=== PATIENT | female | born 1970 | race Caucasian/White ===

== ENCOUNTER 2018-03-13 12:53 | Observation (INO) ==
[2018-03-13] MEDS ORDERED: Ipratropium/Albuterol Neb 3 ML IH ONE ×2 (13:24→19:45)
--- NOTE | 2018-03-13 13:47 | Emergency Department Note ---
Disposition Clinical Impression: Leg swelling Pneumonia Qualifiers: Pneumonia type: due to unspecified organism Laterality: bilateral Lung location : unspecified part of lung Qualified Code(s): J18.9 - Pneumonia, unspecified organism Disposition: Admitted As Inpatient Condition: Fair General Adult HPI - General Chief complaint: ED Shortness of Breath/Dyspnea Stated complaint: MANDI Time Seen by Provider: 03/13/18 13:16 Source: patient, EMS Mode of arrival: ambulatory Limitations: no limitations Nursing Notes Reviewed: Yes Vital Signs Reviewed: Yes - History of Present Illness HPI Narrative: Patient presents to the emergency department for difficulty in breathing. Patient states that she has been diagnosed with pneumonia and has undergone admission approximately 4 weeks ago for pneumonia. She has multiple allergies and says that it is difficult to treat her pneumonia. During her stay in the hospital she did undergo a cholecystectomy. Patient has been recovering from this and has had issues with constipation since her surgery. The patient states that she has also recently had swelling in her legs that has been worse over the last week and has become more painful. Patient states she presents here to [place] because she has recently moved to the area. Her most recent admission and surgery were performed in [place]. Patient's previous results will be obtained. Blood work as well as CT imaging be performed to rule out intra-abdominal process as well as possible PE with recent surgery. Pain Scale: 3 - Related Data Home Medications Medication Instructions Recorded Confirmed Aspirin Enteric Coated [Aspirin EC] 81 mg PO DAILY 03/13/18 03/13/18 Atorvastatin Calcium [Lipitor] 20 mg PO HS 03/13/18 03/13/18 Divalproex (12 HR) [Depakote (12 500 mg PO BID 03/13/18 03/13/18 HR)] Metoprolol [Lopressor] 25 mg PO BID 03/13/18 03/13/18 Nortriptyline HCl 50 mg PO HS 03/13/18 03/13/18 Ondansetron HCl [Zofran] 4 mg PO TID PRN 03/13/18 03/13/18 Allergies Allergy/AdvReac Type Severity Reaction Status Date / Time cephalexin [From Keflex] Allergy See Verified 03/13/18 19:31 Comments levofloxacin [From Levaquin] Allergy Swelling Verified 03/13/18 14:14 of Lip/Tongue/Throat Penicillins [PCN] Allergy See Verified 03/13/18 19:31 Comments Sulfa (Sulfonamide Allergy Swelling Verified 03/13/18 14:13 Antibiotics) of Lip/Tongue/Throat Review of Systems: CONSTITUTIONAL: Weakness and fatigue HEENT: Eyes: No visual changes. Ears, Nose, Throat: No hearing loss, difficulty talking or unable to swallow. SKIN: No rash or itching. CARDIOVASCULAR: No chest pain, chest pressure or chest discomfort. No palpitations or edema. RESPIRATORY: Shortness of breath and went cough without sputum production. GASTROINTESTINAL: Abdominal pain with constipaiton. GENITOURINARY: decreased urination NEUROLOGICAL: No headache, dizziness, syncope, paralysis, ataxia, numbness or tingling in the extremities. No change in bowel or bladder control. MUSCULOSKELETAL: Lower extremity leg pain with associated swelling of the lower extremities. Past Medical History - Past Medical History Medical history: Reports: CHF, COPD, hypertension, seizures - Social History Smoking Status: Current every day smoker Smokeless Tobacco Status: No Alcohol use: Reports: none Drug use: Reports: IV Drug Use Physical Exam General: Patient in pain secondary to lower extremities as well as what sounds very wet cough Head: Normocephalic Atraumatic Eyes: PERRL, EOMI ENT: Airway patent, no stridor Neck: supple, no meningismus Chest: Diffuse rhonchi Cardiac: Regular rate and rhythm Abdomen: Patient with surgical scars intact. Mild distention. Generalized tenderness. No rebound or guarding. No CVA tenderness. Musculoskeletal: Patient with pain and swelling to the lower extremities. Nonpitting edema. Skin: No rash, normal skin tone Neuro: Alert and Oriented to person, place, and time; No focal deficit, - General General appearance: alert, in no apparent distress Course Course Narrative: Unfortunately this patient had multiple things that cause delay in her care. Blood was hemolyzed. There was an issue with the IV in order to get the CT scan performed. Overall the patient's blood work had been evaluated and noted' s normal. Concern for chest x-ray atelectasis versus pneumonia. The patient's CTA and CT abdomen and pelvis were performed. Concern for pneumonia and bronchial wall thickening. Patient does have increased oxygen requirement as well as significant cough. The patient is in discomfort secondary to abdominal constipation as well as lower extremity swelling and pain. There is no evidence of congestive heart failure or other reasons for lower show any pain at this time. She has been given pain medication as above. The patient's biliary ducts were noted is dilated in to be correlated with hepatic panel. Bilirubin is normal. At this time the patient's labs and imaging are concerning for severe bronchitis versus pneumonia. She was admitted and treated for pneumonia approximately a month ago. She has been placed on triple coverage antibiotics. - Reevaluation(s) Reevaluation #1: Patient was reevaluated multiple times during her stay. Multiple doses of pain medication were given for lower extremity pain. Patient states minimal relief with breathing treatments. She does have a history of COPD. Given her COPD history further breathing treatments as well as steroids were given. - Consultations Consultation #1: Discussed with hospitalist. Patient accepted for admission. Vital Signs Temperature 98 F 03/13/18 13:12 Pulse Rate 96 03/13/18 13:12 Respiratory Rate 18 03/13/18 13:12 Blood Pressure 104/78 03/13/18 13:12 O2 Sat by Pulse Oximetry 96 03/13/18 13:12 Temperature 98 F 03/13/18 13:12 Pulse Rate 96 03/13/18 13:12 Respiratory Rate 18 03/13/18 14:30 Blood Pressure 104/78 03/13/18 13:12 O2 Sat by Pulse Oximetry 95 03/13/18 14:30 Oxygen Delivery Oxygen Delivery Nasal Cannula Medical Decision Making - Medical Records Medical records reviewed: Yes I reviewed the patient's medical records. - Lab Data Lab results reviewed: Yes I reviewed the patient's lab results. Result diagrams: 03/13/18 13:43 03/13/18 14:56 Lab Results 03/13/18 03/13/18 03/13/18 Range/Units 13:43 13:43 13:43 WBC 5.7 (4.3-11.1) K/mcL RBC 3.93 (3.82-4.97) M/mcL Hgb 11.0 L (11.5-15.4) g/dL Hct 35.3 (35.3-44.9) % MCV 89.8 (83.0-100.0) fL MCH 28.0 (28.0-33.3) pg MCHC 31.2 L (31.6-35.5) g/dL RDW 14.5 (11.5-14.5) % Plt Count 277 (140-400) K/mcL MPV 10.2 (9.4-12.4) fL Immature Gran % 0.2 (0-4) % Seg Neutrophils % 50.7 % Lymphocytes % 32.0 % Monocytes % 14.4 % Eosinophils % 2.3 % Basophils % 0.4 % Neutrophils # 2.9 (1.6-8.9) K/mcL Lymphocytes # 1.8 (0.6-4.6) K/mcL Monocytes # 0.8 (0.0-1.3) K/mcL Eosinophils # 0.1 (0.0-0.6) K/mcL Basophils # 0.0 (0.0-0.2) K/mcL PT (9.4-12.1) Seconds INR APTT (26.0-36.0) Seconds Sodium Cancelled Potassium Cancelled Chloride Cancelled Carbon Dioxide Cancelled BUN Cancelled Creatinine Cancelled Est GFR ( Amer) Cancelled Est GFR (Non-Af Amer) Cancelled BUN/Creatinine Ratio Cancelled Glucose Cancelled Calculated Osmolality Cancelled Lactic Acid 1.2 (0.5-2.2) mmol/L Calcium Cancelled Total Bilirubin Cancelled Direct Bilirubin Cancelled Indirect Bilirubin Cancelled AST Cancelled ALT Cancelled Alkaline Phosphatase Cancelled Troponin I < 0.03 (< 0.04) ng/mL B-Natriuretic Peptide (Less than 100) pg/mL Serum Total Protein Cancelled Albumin Cancelled Globulin Cancelled Albumin/Globulin Ratio Cancelled Urine Color (Yellow) Urine Clarity (Clear) Urine pH (5.0-8.0) pH Units Ur Specific [place] (1.010-1.025) Urine Protein (Neg-Trace) mg/dL Urine Glucose (UA) (Normal) mg/dL Urine Ketones (Negative) mg/dL Urine Blood (Negative) Urine Nitrite (Negative) Urine Bilirubin (Negative) Urine Urobilinogen (Normal) mg/dL Ur Leukocyte Esterase (Negative) Ur Culture Indicated? (NO) Specimen Rejected 03/13/18 03/13/18 03/13/18 Range/Units 13:43 13:43 13:43 WBC (4.3-11.1) K/mcL RBC (3.82-4.97) M/mcL Hgb (11.5-15.4) g/dL Hct (35.3-44.9) % MCV (83.0-100.0) fL MCH (28.0-33.3) pg MCHC (31.6-35.5) g/dL RDW (11.5-14.5) % Plt Count (140-400) K/mcL MPV (9.4-12.4) fL Immature Gran % (0-4) % Seg Neutrophils % % Lymphocytes % % Monocytes % % Eosinophils % % Basophils % % Neutrophils # (1.6-8.9) K/mcL Lymphocytes # (0.6-4.6) K/mcL Monocytes # (0.0-1.3) K/mcL Eosinophils # (0.0-0.6) K/mcL Basophils # (0.0-0.2) K/mcL PT 11.7 (9.4-12.1) Seconds INR 1.0 APTT 31.4 (26.0-36.0) Seconds Sodium Potassium Chloride Carbon Dioxide BUN Creatinine Est GFR ( Amer) Est GFR (Non-Af Amer) BUN/Creatinine Ratio Glucose Calculated Osmolality Lactic Acid (0.5-2.2) mmol/L Calcium Total Bilirubin Direct Bilirubin Indirect Bilirubin AST ALT Alkaline Phosphatase Troponin I (< 0.04) ng/mL B-Natriuretic Peptide 31 (Less than 100) pg/mL Serum Total Protein Albumin Globulin Albumin/Globulin Ratio Urine Color (Yellow) Urine Clarity (Clear) Urine pH (5.0-8.0) pH Units Ur Specific [place] (1.010-1.025) Urine Protein (Neg-Trace) mg/dL Urine Glucose (UA) (Normal) mg/dL Urine Ketones (Negative) mg/dL Urine Blood (Negative) Urine Nitrite (Negative) Urine Bilirubin (Negative) Urine Urobilinogen (Normal) mg/dL Ur Leukocyte Esterase (Negative) Ur Culture Indicated? (NO) Specimen Rejected Hemolyzed 03/13/18 03/13/18 Range/Units 14:56 19:20 WBC (4.3-11.1) K/mcL RBC (3.82-4.97) M/mcL Hgb (11.5-15.4) g/dL Hct (35.3-44.9) % MCV (83.0-100.0) fL MCH (28.0-33.3) pg MCHC (31.6-35.5) g/dL RDW (11.5-14.5) % Plt Count (140-400) K/mcL MPV (9.4-12.4) fL Immature Gran % (0-4) % Seg Neutrophils % % Lymphocytes % % Monocytes % % Eosinophils % % Basophils % % Neutrophils # (1.6-8.9) K/mcL Lymphocytes # (0.6-4.6) K/mcL Monocytes # (0.0-1.3) K/mcL Eosinophils # (0.0-0.6) K/mcL Basophils # (0.0-0.2) K/mcL PT (9.4-12.1) Seconds INR APTT (26.0-36.0) Seconds Sodium 138 Potassium 3.9 Chloride 110 H Carbon Dioxide 23 BUN 6 Creatinine 0.81 Est GFR ( Amer) > 60 Est GFR (Non-Af Amer) > 60 BUN/Creatinine Ratio 7 Glucose 138 H Calculated Osmolality 286 Lactic Acid (0.5-2.2) mmol/L Calcium 8.8 Total Bilirubin 0.3 Direct Bilirubin 0.0 Indirect Bilirubin 0.3 AST 19 ALT 10 Alkaline Phosphatase 88 Troponin I (< 0.04) ng/mL B-Natriuretic Peptide (Less than 100) pg/mL Serum Total Protein 6.6 Albumin 3.6 Globulin 3.0 Albumin/Globulin Ratio 1.2 Urine Color Yellow (Yellow) Urine Clarity Clear (Clear) Urine pH 6.0 (5.0-8.0) pH Units Ur Specific [place] 1.014 (1.010-1.025) Urine Protein Negative (Neg-Trace) mg/dL Urine Glucose (UA) Normal (Normal) mg/dL Urine Ketones Negative (Negative) mg/dL Urine Blood Negative (Negative) Urine Nitrite Negative (Negative) Urine Bilirubin Negative (Negative) Urine Urobilinogen Normal (Normal) mg/dL Ur Leukocyte Esterase Negative (Negative) Ur Culture Indicated? NO (NO) Specimen Rejected - Radiology Data Radiology results reviewed: Yes I reviewed the patient's radiology results. - EKG Data EKG #1 EKG attestation: Yes I reviewed and interpreted this EKG. EKG results narrative: EKG shows sinus rhythm with ventricular rate of 91. EDA 169. QRS 96. QTC 428. Patient has no significant ST elevations or depressions. No previous EKG for comparison. Patient does have Q waves in lead 3. Poor R-wave progression.
[2018-03-13 13:53] LABS: Basophils % 0.4 %; Eosinophils # 0.1 K/mcL (0.0-0.6); Eosinophils % 2.3 %; Hematocrit 35.3 % (35.3-44.9); Immature Granulocytes % 0.2 % (0-4); Lymphocytes # 1.8 K/mcL (0.6-4.6); Mean Corpuscular HGB Conc 31.2 g/dL (31.6-35.5); Mean Corpuscular Volume 89.8 fL (83.0-100.0); Mean Platelet Volume 10.2 fL (9.4-12.4); Monocytes # 0.8 K/mcL (0.0-1.3); Monocytes % 14.4 %; Neutrophils # 2.9 K/mcL (1.6-8.9); Platelet Count 277 K/mcL (140-400); Red Blood Count 3.93 M/mcL (3.82-4.97); Red Cell Distribution Width 14.5 % (11.5-14.5); Segmented Neutrophils % 50.7 %
[2018-03-13 14:02] LABS: Prothrombin Time 11.7 Seconds (9.4-12.1)
[2018-03-13 14:05] LABS: Activated Partial Thrombo Time 31.4 Seconds (26.0-36.0)
[2018-03-13] MEDS ORDERED: *HR* HYDROmorphone (PF) 1 MG/ML SYRINGE IVP ONE ×2 (14:38→19:43)
[2018-03-13] MEDS ORDERED: Ondansetron 4 MG/2 ML VIAL IVP ONE (14:38)
[2018-03-13 15:56] LABS: Alanine Aminotransferase 10 Units/L (7-52); Albumin 3.6 g/dL (3.5-5.7); Albumin/Globulin Ratio 1.2 (1.1-2.2); Alkaline Phosphatase 88 Units/L (34-104); Aspartate Amino Transferase 19 Units/L (13-39); BUN/Creatinine Ratio 7 (6-26); Bilirubin,Indirect 0.3 mg/dL (0.0-1.2); Bilirubin,Total 0.3 mg/dL (0.3-1.0); Blood Urea Nitrogen 6 mg/dL (6-20); Calcium 8.8 mg/dL (8.6-10.3); Carbon Dioxide 23 mEq/L (23-29); Chloride 110 mEq/L (98-107); Glucose 138 mg/dL (70-105); Osmolality,Calculated 286 (280-300); Potassium 3.9 mEq/L (3.5-5.1); Sodium 138 mEq/L (136-145); Total Protein 6.6 g/dL (6.4-8.9); eGFR For African Americans > 60 (> 60); eGFR For Non-African Americans > 60 (> 60)
[2018-03-13] MEDS ORDERED: Isovue-370 500 ML INFUS..BTL IV ONE (16:10)
[2018-03-13] MEDS ORDERED: 0.9 % Sodium Chloride 500 ML IVC ONE (16:16)
--- NOTE | 2018-03-13 17:45 | Electrocardiograph Report ---
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
[2018-03-13] MEDS ORDERED: Aztreonam 2,000 MG in 0.9 % Sodium Chloride Mini Bag 100 ML IVPB STA (19:38)
[2018-03-13] MEDS ORDERED: Azithromycin 500 MG in D5% in Water 250 ML IVPB ONE (19:38)
[2018-03-13 19:41] LABS: Bilirubin,Urine Negative (Negative); Blood,Urine Negative (Negative); Clarity,Urine Clear (Clear); Color,Urine Yellow (Yellow); Glucose,Urine (UA) Normal (Normal); Ketones,Urine Negative (Negative); Leukocyte Esterase,Urine Negative (Negative); Nitrite,Urine Negative (Negative); Protein,Urine Negative (Neg-Trace); Specific Gravity,Urine 1.014 (1.010-1.025); Urobilinogen,Urine Normal (Normal)
[2018-03-13] MEDS ORDERED: 0.9 % Sodium Chloride 1,000 ML IVC ONE (19:43)
[2018-03-13] MEDS ORDERED: methylPREDNISolone 125 MG/2 ML VIAL IVP ONE (19:45)
--- NOTE | 2018-03-13 23:17 | Internal Med History&Physical ---
Date of Encounter: 03/13/18 Time of Encounter: 09:00 Internal Medicine - H&P: HPI Chief complaint: sob and LE edema History of present illness: Ms. Arango is a 47 year old female presents to the emergency department for difficulty in breathing with progressive worsening of LE edema . She does have a history of COPD. She has been diagnosed with pneumonia and has undergone admission approximately 4 weeks ago for pneumonia. During her stay in the hospital she did undergo a cholecystectomy. she presents here to [place] because she has recently moved to the area. Her most recent admission and surgery were performed in [place]. Concern for chest x-ray atelectasis versus pneumonia. The patient's CTA and CT abdomen and pelvis were performed and revealed pneumonia and bronchial wall thickening, no evidence of congestive heart failure on imaging . Past Med Surg Social Fam HX - Past Medical History Medical history: CHF, COPD, hypertension, seizures - Past Surgical History Additional surgical history: Had GB surgery and partial liver removal 3 weeks ago - Social History Smoking Status: Current every day smoker Smokeless Tobacco Status: No Alcohol use: none Drug use: IV Drug Use - Family History Father Hx Family Cardiac Disorders: (AL) Hx Family Endocrine Disorder: (DM) Internal Medicine - H&P: Meds Aspirin Enteric Coated [Aspirin EC] 81 mg PO DAILY 03/13/18 [History] Atorvastatin Calcium [Lipitor] 20 mg PO HS 03/13/18 [History] Divalproex (12 HR) [Depakote (12 HR)] 500 mg PO BID 03/13/18 [History] Metoprolol [Lopressor] 25 mg PO BID 03/13/18 [History] Nortriptyline HCl 50 mg PO HS 03/13/18 [History] Ondansetron HCl [Zofran] 4 mg PO TID PRN 03/13/18 [History] 3 Allergy/AdvReac Type Severity Reaction Status Date / Time cephalexin [From Keflex] Allergy See Verified 03/13/18 19:31 Comments levofloxacin [From Levaquin] Allergy Swelling Verified 03/13/18 14:14 of Lip/Tongue/Throat Penicillins [PCN] Allergy See Verified 03/13/18 19:31 Comments Sulfa (Sulfonamide Allergy Swelling Verified 03/13/18 14:13 Antibiotics) of Lip/Tongue/Throat All Systems PM: A 10-system review of systems was performed and is negative for pertinent findings except as documented above in the HPI. - Constitutional Vitals: Temp Pulse Resp BP Pulse Ox 98.8 F 105 17 115/59 97 03/13/18 21:10 03/13/18 21:10 03/13/18 21:10 03/13/18 21:10 03/13/18 21:10 Internal Med - H&P Results - Labs CBC & Chem 7: 03/14/18 00:38 03/14/18 00:38 - Assessment and plan (1) SOB (shortness of breath) Current Visit: Yes Status: Acute Assessment and plan: ASSESSMENT: - SOB due to *COPD exacerbation caused by URTI, allergen exposure, medication nonocompliance VS *Bronchitis VS Congestive heart failure exacerbation given the patient have lower extremity edema however imaging studies no suggestive of heart failure PLAN: - Aerosols q 4 hr and PRN SOB - Solu-medrol 40 mg IV q 6 hr - O2 to keep SpO2 higher than 92% (SpO higher than 95% if CAD) - CBCD, BMP in AM - Sputum Gram stain, C+S - Robitussin 10 cc PO q 4 hr - Tylenol 650 mg PO q 4-6 hr PRN pain/fever - Heparin 5000 U SQ BID - Home meds - check the list and restart - Azithromycine /CEFTRIAXONE - ECho (2) Leg swelling Current Visit: Yes Status: Acute Assessment and plan: It is no evidence on imaging studies of congestive heart failure, would obtain 2D echo. (3) COPD (chronic obstructive pulmonary disease) Current Visit: Yes Status: Acute - Time Spent With Patient Total time spent is greater than 50% in coordination of care (as documented) at patient's floor/unit and/or counseling patient:
[2018-03-13] MEDS ORDERED: Ondansetron ODT 4 MG TAB.RAPDIS PO PRN (23:51)
[2018-03-13] MEDS ORDERED: Naloxone 0.4 MG/ML INJ IVP PRN (23:57)
[2018-03-13] MEDS ORDERED: Acetaminophen 325 MG TABLET PO PRN (23:57)
[2018-03-14] MEDS: Divalproex (12 HR) 500 MG TABLET PO SCH ×4 (00:03→21:37)
[2018-03-14 00:54] LABS: Basophils % 0.1 %; Eosinophils % 0.2 %; Hematocrit 35.6 % (35.3-44.9); Hemoglobin 11.1 g/dL (11.5-15.4); Immature Granulocytes % 0.4 % (0-4); Immature Platelets 4.5 % (1.1-6.1); Lymphocytes # 0.5 K/mcL (0.6-4.6); Lymphocytes % 4.6 %; Mean Corpuscular HGB Conc 31.2 g/dL (31.6-35.5); Mean Corpuscular Hemoglobin 28.2 pg (28.0-33.3); Mean Corpuscular Volume 90.6 fL (83.0-100.0); Mean Platelet Volume 10.4 fL (9.4-12.4); Monocytes # 0.3 K/mcL (0.0-1.3); Monocytes % 2.9 %; Neutrophils # 9.8 K/mcL (1.6-8.9); Red Blood Count 3.93 M/mcL (3.82-4.97); Red Cell Distribution Width 14.5 % (11.5-14.5); Segmented Neutrophils % 91.8 %
[2018-03-14 00:57] LABS: Prothrombin Time 11.4 Seconds (9.4-12.1)
[2018-03-14 01:00] LABS: Activated Partial Thrombo Time 34.3 Seconds (26.0-36.0)
[2018-03-14 01:09] LABS: Alanine Aminotransferase 6 Units/L (7-52); Albumin 3.7 g/dL (3.5-5.7); Albumin/Globulin Ratio 1.2 (1.1-2.2); Alkaline Phosphatase 86 Units/L (34-104); Aspartate Amino Transferase 13 Units/L (13-39); BUN/Creatinine Ratio 10 (6-26); Bilirubin,Total 0.3 mg/dL (0.3-1.0); Blood Urea Nitrogen 8 mg/dL (6-20); Calcium 8.6 mg/dL (8.6-10.3); Carbon Dioxide 19 mEq/L (23-29); Chloride 110 mEq/L (98-107); Chol/HDL Ratio 3.7 (0-4.9); Cholesterol 93 mg/dL (< 200); Globulin 3.1 g/dL (2.4-3.5); Glucose 133 mg/dL (70-105); HDL Cholesterol 25 mg/dL (40-59); LDL Cholesterol,Calculated 51 mg/dL (0-99); Magnesium 1.7 mg/dL (1.6-2.6); Osmolality,Calculated 284 (280-300); Potassium 3.9 mEq/L (3.5-5.1); Sodium 137 mEq/L (136-145); Total Protein 6.8 g/dL (6.4-8.9); Triglycerides 83 mg/dL (< 150); eGFR For African Americans > 60 (> 60); eGFR For Non-African Americans > 60 (> 60)
[2018-03-14 01:13] LABS: Large Platelets Present (Not Present); Platelet Count 238 K/mcL (140-400); Platelet Estimate Normal (Normal)
[2018-03-14] MEDS: *HR* HYDROcodone/Acet 5/325 mg TABLET PO PRN ×2 (01:23→10:56)
[2018-03-14] MEDS ORDERED: Naloxone 0.4 MG/ML INJ IVP PRN (04:04)
[2018-03-14] MEDS: MethylPREDNISolone 40 MG/ML VIAL IVP SCH ×4 (04:58→18:14)
[2018-03-14] MEDS: *HR* Heparin 5,000 UNIT/ML VIAL SQ SCH ×2 (04:58→18:15)
[2018-03-14] MEDS: Ipratropium/Albuterol Neb 3 ML IH SCH ×4 (06:04→23:46)
[2018-03-14] MEDS: GuaiFENesin Liq 200 MG/10 ML UDC PO PRN ×2 (06:34→21:37)
[2018-03-14 07:33] LABS: Influenza A PCR Negative (Negative); Influenza B PCR Negative (Negative); Resp. Syncytial Virus PCR Negative (Negative)
[2018-03-14] MEDS ORDERED: cefTRIAXone 1,000 MG in Water for inj. (sterile) 20 ML 10 ML IVP SCH (09:00)
[2018-03-14] MEDS: Aspirin Enteric Coated 81 MG Tablet PO SCH (10:39)
[2018-03-14] MEDS ORDERED: 0.9 % Sodium Chloride 1,000 ML ONE (17:53)
[2018-03-14] MEDS ORDERED: Azithromycin 500 MG in D5% in Water 250 ML IVPB SCH (20:00)
--- NOTE | 2018-03-14 20:18 | Internal Med Progress Note ---
Date of Encounter: 03/14/18 Time of Encounter: 09:00 - Assessment and plan (1) SOB (shortness of breath) Current Visit: Yes Status: Acute Assessment and plan: COPD vs Pneumonia CTA suggestive of PNA continue with duonebs, solumedrol Transition to PO prednisone tomorrow. Influenza and RSV negative. f/u resp panels remaining. c/w Azithromycin (2) Leg swelling Current Visit: Yes Status: Acute Assessment and plan: ECHO with EF 60% Mild LV diastolic dysfunction, likely etiology of swelling Gentle diuresis if swellling not improved in AM (3) Pneumonia Current Visit: Yes Status: Acute Assessment and plan: PNA evident on chest CT c/w nebs, azithromycin, solumedrol Transition to PO prednisone in AM. Saturating well on RA. Qualifiers: Pneumonia type: due to unspecified organism Laterality: bilateral Lung location: unspecified part of lung Qualified Code(s): J18.9 - Pneumonia, unspecified organism - Time Spent With Patient Total time spent is greater than 50% in coordination of care (as documented) at patient's floor/unit and/or counseling patient: - Subjective Interval history: Patient evaluated at bedside. Reports improvement in SOB otherwise denies other complaints. - Constitutional Vitals: Temp Pulse Resp BP Pulse Ox 97.9 F 77 18 112/73 94 03/14/18 15:09 03/14/18 15:03/14/18 15:56 03/14/18 15:03/14/18 15:56 Exam: General: Alert and oriented Skin: Normal color, no rash, no lesions. HEENT: EOMI, pupils equal, round and reactive. Cardiovascular: Regular rate, regular rythm. No murmurs appreciated. Lungs: mild coarse breath sounds b/l bases. Abdomen:Soft, non-tender, no rigidity. Extremities:No deformity, no edema or tenderness, no joint swelling or clubbing. Neurological:Normal cognition, no weakness, no numbness. Rest of the physical exam is non contributory Internal Medicine: Result - Labs CBC & Chem 7: 03/14/18 00:38 03/14/18 00:38 Labs: Short CBC 03/14/18 Range/Units 00:38 WBC 10.7 D (4.3-11.1) K/mcL Hgb 11.1 L (11.5-15.4) g/dL Hct 35.6 (35.3-44.9) % Plt Count 238 (140-400) K/mcL Neutrophils # 9.8 H (1.6-8.9) K/mcL BMP 03/14/18 00:38 Sodium 137 Potassium 3.9 Chloride 110 H Carbon Dioxide 19 L BUN 8 Creatinine 0.77 Glucose 133 H Calcium 8.6 Liver Function 03/14/18 Range/Units 00:38 Total Bilirubin 0.3 (0.3-1.0) mg/dL AST 13 (13-39) Units/L ALT 6 L (7-52) Units/L Alkaline Phosphatase 86 (34-104) Units/L Albumin 3.7 (3.5-5.7) g/dL - ABG Interpretation ABG results: PT/INR, D-dimer PT 11.4 Seconds (9.4-12.1) 03/14/18 00:38 - Impressions Impressions Echocardiogram 03/14/18 00:06 Impressions: LVEF 60%. Mild left ventricular diastolic dysfunction. Normal right ventricular structure and function. Mild-moderate mitral regurgitation. Mild-moderate tricuspid regurgitation. Mild-moderate pulmonic regurgitation. Mild pulmonary hypertension. No evidence of PFO with agitated saline contrast. Left Ventricular Wall Motion: Rest Echo Findings All wall segments showed normal motion. Findings: Study Quality * Technically adequate exam. ECG Findings * Normal sinus rhythm. Left Ventricle * LVEF 60%. * Normal LV chamber size, wall thickness and function. * Mild left ventricular diastolic dysfunction. Right Ventricle * Normal right ventricular structure and function. Left Atrium * Mildly dilated left atrium. Right Atrium * Normal right atrial size. Mitral Valve * Normal mitral valve structure. * No mitral stenosis. * Mild-moderate mitral regurgitation. Aortic Valve * No aortic regurgitation. * Trileaflet aortic valve. * No aortic stenosis. Tricuspid Valve * Normal tricuspid valve structure. * Mild-moderate tricuspid regurgitation. * Estimated RA pressure is 3 mmHg. * Estimated RVSP is 36 mmHg. * Mild pulmonary hypertension. Pulmonic Valve * Pulmonic valve not well visualized. * No pulmonic stenosis. * Mild-moderate pulmonic regurgitation. Pulmonary Artery * Pulmonary artery not well visualized. Aorta * Normally sized aortic root. Pericardium * There is no pericardial effusion present. Interatrial Septum * No evidence of PFO by color Doppler. * No evidence of PFO with agitated saline contrast. IVC * Normal IVC dimensions and inspiratory collapse. Consult Discharge Plan - Plan Referrals: NONE,PCP [Primary Care Provider] -
[2018-03-14] MEDS ORDERED: 0.9 % Sodium Chloride 1,000 ML IVC SCH (20:30)
[2018-03-14 22:10] LABS: Bilirubin,Urine Negative (Negative); Blood,Urine Negative (Negative); Clarity,Urine Clear (Clear); Color,Urine Yellow (Yellow); Glucose,Urine (UA) 250 mg/dL (Normal); Ketones,Urine Negative (Negative); Leukocyte Esterase,Urine Negative (Negative); Nitrite,Urine Negative (Negative); PH,Urine 7.5 pH Units (5.0-8.0); Protein,Urine Negative (Neg-Trace); Specific Gravity,Urine 1.017 (1.010-1.025); Urobilinogen,Urine Normal (Normal)
[2018-03-15] MEDS: MethylPREDNISolone 40 MG/ML VIAL IVP SCH ×3 (01:04→12:34)
[2018-03-15] MEDS: Ipratropium/Albuterol Neb 3 ML IH SCH ×2 (03:49→10:41)
[2018-03-15] MEDS: *HR* Heparin 5,000 UNIT/ML VIAL SQ SCH (04:44)
[2018-03-15] MEDS: Divalproex (12 HR) 500 MG TABLET PO SCH (09:00)
[2018-03-15] MEDS: Aspirin Enteric Coated 81 MG Tablet PO SCH (09:00)
[2018-03-15 09:25] LABS: Hematocrit 35.6 % (35.3-44.9); Hemoglobin 11.3 g/dL (11.5-15.4); Immature Granulocytes % 0.6 % (0-4); Lymphocytes # 0.7 K/mcL (0.6-4.6); Lymphocytes % 6.5 %; Mean Corpuscular HGB Conc 31.7 g/dL (31.6-35.5); Mean Corpuscular Volume 88.3 fL (83.0-100.0); Mean Platelet Volume 10.8 fL (9.4-12.4); Monocytes # 0.2 K/mcL (0.0-1.3); Monocytes % 2.1 %; Neutrophils # 10.2 K/mcL (1.6-8.9); Platelet Count 296 K/mcL (140-400); Red Blood Count 4.03 M/mcL (3.82-4.97); Red Cell Distribution Width 14.6 % (11.5-14.5); Segmented Neutrophils % 90.8 %
[2018-03-15 09:42] LABS: Alanine Aminotransferase 7 Units/L (7-52); Albumin/Globulin Ratio 1.3 (1.1-2.2); Alkaline Phosphatase 84 Units/L (34-104); Aspartate Amino Transferase 9 Units/L (13-39); BUN/Creatinine Ratio 19 (6-26); Bilirubin,Total 0.3 mg/dL (0.3-1.0); Blood Urea Nitrogen 12 mg/dL (6-20); Calcium 9.3 mg/dL (8.6-10.3); Carbon Dioxide 23 mEq/L (23-29); Chloride 111 mEq/L (98-107); Globulin 3.2 g/dL (2.4-3.5); Glucose 283 mg/dL (70-105); Osmolality,Calculated 302 (280-300); Potassium 3.6 mEq/L (3.5-5.1); Sodium 141 mEq/L (136-145); Total Protein 7.2 g/dL (6.4-8.9); eGFR For African Americans > 60 (> 60); eGFR For Non-African Americans > 60 (> 60)
[2018-03-15 11:11] VITALS: BP 134/76
--- NOTE | 2018-03-15 12:10 | Discharge Summary ---
- NOTES TO OUTPATIENT PROVIDER Notes to Outpatient Provider: Pending blood culture. Legionella and other respiratory panel negative to date. Orders not resulted at time of discharge: Pending orders 03/14/18 04:06 Culture,Sputum with Gram Stain [RM] Routine Date of Encounter: 03/15/18 Time of Encounter: 11:00 - Discharge Diagnosis (1) Pneumonia Priority: Primary Status: Acute Assessment and Plan: CTA suggestive of PNA discharge today to complete course of antibiotics azithromycin as well as prednisone for possible COPD Influenza, RSA, legionella negative. Blood culture still pending Qualifiers: Pneumonia type: due to unspecified organism Laterality: bilateral Lung location: unspecified part of lung Qualified Code(s): J18.9 - Pneumonia, unspecified organism (2) Leg swelling Priority: Secondary Status: Acute Assessment and Plan: ECHO with EF 60% Mild LV diastolic dysfunction, likely etiology of swelling No notable swelling anymore, f/u with PMD if swelling recurs and may need initiation of low dose diuresis Hospital course: Ms. Arango is a 47 year old female with PMH COPD, HTN, CHF presented to the ED with worsening dyspnea and LE edema. CTA and CT abdomen/pelvis noted PNA and patient was treated with nebulizers and steroids. She reported feeling much better and can go home. LE edema resolved, no significant edema noted. May start some low dose diuresis as outptient with PMD with she appears fluid overload. Previous ECHO with preserved EF with mild diastolic dysfunction. Discharge discussed with: patient, nurse - Time Spent with Patient Total time spent providing and/or coordinating discharge services: Greater than 30 minutes - Discharge Medications Prescriptions: predniSONE [PredniSONE] 40 mg PO DAILY 3 Days #3 tablet Home Medications: Aspirin Enteric Coated [Aspirin EC] 81 mg PO DAILY 03/13/18 [History] Atorvastatin Calcium [Lipitor] 20 mg PO HS 03/13/18 [History] Divalproex (12 HR) [Depakote (12 HR)] 500 mg PO BID 03/13/18 [History] Metoprolol [Lopressor] 25 mg PO BID 03/13/18 [History] Nortriptyline HCl 50 mg PO HS 03/13/18 [History] Ondansetron HCl [Zofran] 4 mg PO TID PRN 03/13/18 [History] predniSONE [PredniSONE] 40 mg PO DAILY 3 Days #3 tablet 03/15/18 [Rx] Allergies/Adverse Reactions: 3 Allergy/AdvReac Type Severity Reaction Status Date / Time cephalexin [From Keflex] Allergy See Verified 03/13/18 19:31 Comments levofloxacin [From Levaquin] Allergy Swelling Verified 03/13/18 14:14 of Lip/Tongue/Throat Penicillins [PCN] Allergy See Verified 03/13/18 19:31 Comments Sulfa (Sulfonamide Allergy Swelling Verified 03/13/18 14:13 Antibiotics) of Lip/Tongue/Throat Date of admission: 03/13/18 20:11 Primary care physician: PCP NONE Consults: 03/14/18 04:05 Consult to Nurse Navigator [CONS] Routine Comment: 03/14/18 04:09 Consult to Nurse Navigator [CONS] Routine Comment: 03/14/18 04:21 Consult to Nurse Navigator [CONS] Routine Comment: 03/14/18 04:27 Consult to Pulmonology [CONS] Routine Consulting Provider: [facility] Reason for Consult: recurrent pneumonia Time Notified: 04:29 Call Completed: No - Constitutional Vitals: Temp Pulse Resp BP Pulse Ox 98.1 F 79 16 134/76 96 03/15/18 11:09 03/15/18 11:09 03/15/18 11:09 03/15/18 11:09 03/15/18 11:09 Exam: General: Alert and oriented Skin: Normal color, no rash, no lesions. HEENT: EOMI, pupils equal, round and reactive. Cardiovascular: Normal heart rate, normal rhythm. Lungs:mild coarse breath sounds b/l bases. Abdomen:Soft, non-tender, no rigidity. Extremities:No deformity, no edema or tenderness, no joint swelling or clubbing. Neurological:Normal cognition, no weakness, no numbness. Rest of the physical exam is non contributory - Patient Status Disposition: Home, Self-Care Condition: Fair Overall status at discharge: patient is progressing back to baseline - Discharge Instructions Follow Up With: NONE,PCP [Primary Care Provider] - - Diet and Activity Activity: resume usual activities as tolerated
[2018-03-16] MEDS ORDERED: predniSONE 20 MG TABLET PO SCH (09:00)
[2018-03-16] MEDS ORDERED: Azithromycin 250 MG TABLET PO SCH (09:00)
== END 2018-03-15 12:46 | disposition home or self-care (01) ==
LOC: 2ANU 12:53 → EMEROO 12:53 → 2ANU 20:46
PROVIDERS: ADMIT Internal Medicine Nephrology; ATTEND Internal Medicine Nephrology